=== PATIENT | male | born 1990 | race Caucasian/White ===

== ENCOUNTER 2018-10-07 10:39 | Emergency (ER) | payer MEDICAID ==
[~2018-10-07] VITALS: Ht 170.2 cm; Wt 68.0 kg
[2018-10-07 10:44] VITALS: BP_SYST 119
--- NOTE | 2018-10-07 11:00 | NUR ---
Patient presented to ER with abdominal pain, nausea, vomiting and diarrhea x2 days, pain 10/10. Patient A&Ox4, afebrile, ambulatory to ER, arrived with friend. PAtient states he has had abdominal pain, nausea, vomiting, and diarrhea started yesterday. Patient states he has had any food/drink since yesterday, he was not able to keep food/liquids down yesterday so he has not eaten today. Patient states only health hx is previous jaw Fx w/jaw Sx.
--- NOTE | 2018-10-07 11:00 | NUR ---
ER Dr. Moe at bedside examining patient.
[2018-10-07] MEDS ORDERED: NACL 0.9% 1,000 ML IV ONE (11:05)
[2018-10-07] MEDS ORDERED: ONDANSETRON HCL 4 MG/2 ML VIAL IVP ONE (11:15)
[2018-10-07] MEDS ORDERED: MORPHINE 4 MG/ML INJ. SYRINGE IVP ONE (11:15)
[2018-10-07 11:22] LABS: BASOPHILS # (AUTO) 0.1 K/uL (0.0-0.2); EOSINOPHILS # (AUTO) 0.1 K/uL (0.0-0.4); EOSINOPHILS % (AUTO) 1.1 % (0.0-4.0); HEMATOCRIT 46.9 % (36-54); LYMPHOCYTES # (AUTO) 1.1 K/uL (1.0-5.5); LYMPHOCYTES % (AUTO) 18.4 % (20.5-51.5); MEAN CORPUSCULAR HEMOGLOBIN 32 pg (27-31); MEAN CORPUSCULAR HGB CONC 36 % (32-36); MEAN CORPUSCULAR VOLUME 88 fL (79.0-98.0); MONOCYTES # (AUTO) 0.4 K/uL (0.0-1.0); MONOCYTES % (AUTO) 6.1 % (1.7-9.3); NEUTROPHILS # (AUTO) 4.4 K/uL (1.8-7.7); NEUTROPHILS % (AUTO) 73.4 % (40.0-70.0); PLATELET COUNT (AUTO) 270 K/uL (130-430); RED BLOOD CELL COUNT(AUTO) 5.32 MIL/uL (4.2-6.2); RED CELL DISTRIBUTION WIDTH 13.8 % (9.0-15.0)
[2018-10-07 11:29] LABS: HEMOGLOBIN 16.8 g/dL (14.0-18.0)
[2018-10-07 11:43] LABS: BILIRUBIN,URINE 1+ (NEGATIVE); BLOOD, URINE 3+ (NEGATIVE); CLARITY/URINE SL HAZY (CLEAR); COLOR,URINE AMBER (YELLOW); GLUCOSE,URINE NEGATIVE (NEGATIVE); KETONES,URINE 3+ (NEGATIVE); LEUKOCYTE ESTERASE ,URINE NEGATIVE (NEGATIVE); NITRITE, URINE NEGATIVE (NEGATIVE); PROTEIN URINE TRACE (NEGATIVE); UROBILINOGEN,URINE 0.2 (0.2-1.0)
[2018-10-07 11:51] LABS: ALBUMIN 4.3 g/dL (3.4-4.8); CALCIUM 9.4 mg/dL (8.4-11.0); CREATININE 0.76 mg/dL (0.55-1.30); TOTAL BILIRUBIN 1.5 mg/dL (0.0-1.0)
[2018-10-07 11:58] LABS: BACTERIA,URINE RARE /HPF (None Seen); MUCUS,URINE 1+ /LPF (None Seen); URINE AMORPHOUS URATE 1+ /HPF (None Seen); WBC,URINE 0-3 /HPF (0-3)
--- NOTE | 2018-10-07 12:45 | NUR ---
REPORT TO [facility]
--- NOTE | 2018-10-07 12:50 | NUR ---
EKG done at this time, EKG given to Dr Moe, per Dr Abhi cooper troponin is going to be order.
--- NOTE | 2018-10-07 13:15 | NUR ---
Report given to Johana SHIN
[2018-10-07 14:08] VITALS: BP_SYST 118
--- NOTE | 2018-10-07 14:10 | NUR ---
Patient given written and verbal discharge instructions and verbalizes understanding. ER MD discussed with patient the results and treatment provided. Patient in stable condition. ID arm band removed. IV catheter removed intact and dressing applied, no active bleeding. Rx of Protonix and Zofran given. Patient educated on pain management and to follow up with PMD. Pain Scale 0/10. Opportunity for questions provided and answered. Medication side effect fact sheet provided.
== END 2018-10-07 14:08 | disposition home or self-care (01) ==
LOC: SED 10:39
DX: K52.9 Noninfective gastroenteritis and colitis, unspecified (principal); B34.9 Viral infection, unspecified; R51 Headache
CPT/HCPCS: 36415; 70450; 80053; 81000; 82550; 84484; 85025; 96361; 96374; 96375; 99284; J2270; J2405; J7030